=== PATIENT | female | born 1970 | race Caucasian/White ===

== ENCOUNTER 2017-07-22 14:52 | Inpatient (IN) | payer OTHER ==
[~2017-07-22] VITALS: Ht 152.4 cm; Wt 54.9 kg
[~2017-07-22 14:52] MED LIST: SYNTHROID88 MCG PO
== END 2017-07-30 12:36 | disposition home or self-care (01) | DRG 743 ==
LOC: SURG-SUITE 07-28 05:30 → O/R 07-28 05:30 → OB/GYN 07-28 07:00 → SURG-SUITE 07-28 13:54 → OB/GYN 07-28 14:09 → SURG-SUITE 07-28 14:30
PROVIDERS: Obstetrics & Gynecology Gynecologic Oncology
PROC: 0UT74ZZ Resection of Bilateral Fallopian Tubes, Percutaneous Endoscopic Approach (ICD-10-PCS; 2017-07-28)
PROC: 0UT94ZZ Resection of Uterus, Percutaneous Endoscopic Approach (ICD-10-PCS; principal; 2017-07-28 07:00)
DX: D25.0 Submucous leiomyoma of uterus (principal); N72 Inflammatory disease of cervix uteri